=== PATIENT | male | born 1940 | race Caucasian/White ===

== ENCOUNTER 2017-10-20 07:47 | Observation (INO) | payer BC ==
[~2017-10-20] VITALS: Ht 180.3 cm; Wt 76.7 kg
[2017-10-20] MEDS ORDERED: IV NORMAL SALINE 1000ML BAG 1,000 ML IV SCH (07:55)
--- NOTE | 2017-10-20 08:03 | EKG ---
[facility] [address] [place] [address] Test Date: 2017-10-20 Test Time: 07:59:58 Pat Name: HAWA BE Department: Room: Gender: M Care Worker: : 1940 Requested By: AZUL AARON Order Number: [id number] Reading MD: Gabriel Dorman MD Measurements Intervals [place] Rate: 60 P: 0 TX: 186 QRS: 52 QRSD: 78 T: 51 QT: 382 QTc: 386 Interpretive Statements SINUS RHYTHM CONSISTENT WITH ANTEROSEPTAL INFARCT Electronically Signed On 10-25-2017 14:29:56 COST RECORDER by Gabriel Dorman MD
--- NOTE | 2017-10-20 08:06 | PHYS DOC ---
Past Medical History Past Medical History: CAD, High Cholesterol, Heart Disease, Hypertension, Hypothyroid Past Surgical History: Coronary Bypass Surgery Alcohol Use: None Drug Use: None Adult General Chief Complaint Chief Complaint: NEAR SYNCOPE HPI HPI This is a pleasant 77-year-old otherwise healthy male with history of coronary artery disease requiring bypass surgery 10 years ago who is being treated for hypothyroidism, hypertension and hyperlipidemia who presents with a sudden onset of dizziness and anxiety that began about an hour prior to arrival. Patient was sitting at a [employer] with his friends when he became acutely dizzy. There is no associated hearing loss or tinnitus with his dizziness. He has no chew acuity changes in vision just some blurred vision secondary to hyperventilation. Patient has some tingling to his mouth and his fingertips as well bilaterally and he feels that he cannot take a deep breath in. Patient feels very anxious he denies any chest pain and feels very short of breath as he feels that he cannot breathe well and is having some shaking chills and rrigors. Patient denies any fevers, cough, URI symptoms. Patient denies any travel outside the country or recent antibiotic use. He's never had expressed like this in the past. Differential diagnosis: Acute myocardial ischemia, heart failure, cardiac tamponade, bronchospasm, pulmonary embolism, pneumothorax, pulmonary infection i.e. bronchitis or pneumonia, upper airway obstruction, anaphylaxis, aspiration , psychogenic, pulmonary contusion, toxidrome, pneumomediastinum, noncardiogenic pulmonary edema or ARDS, COPD, tuberculosis, cystic fibrosis, asthma, high altitude pulmonary edema, valvular dysfunction, cardiac dysrhythmia , stroke, neuromuscular diseases like myasthenia gravis gravis, ALS, Guillain- Álvarez syndrome, metabolic acidosis to include diabetic ketoacidosis, sepsis, and obstructive disorders like massive obesity Review of Systems Review of Systems Constitutional: Denies fever patient has had chills and a Rigor Eyes: Denies change in eye pain or redness but he has had some blurred vision [] HENT: Denies nasal congestion or sore throat [] Respiratory: Denies cough but the patient does for short of breath with this symptoms. Cardiovascular: No additional information not addressed in HPI [] GI: Denies abdominal pain, nausea, vomiting, bloody stools or diarrhea [] : Denies dysuria or hematuria [] Musculoskeletal: Denies back pain or joint pain [] Integument: Denies rash or skin lesions [] Neurologic: Denies headache, focal weakness, patient has some paresthesias to the hands and face Endocrine: Denies polyuria or polydipsia [] All other systems were reviewed and found to be within normal limits, except as documented in this note. Current Medications Current Medications Current Medications Medications (Trade) Dose Ordered Sig/Tee Start Time Stop Time Status Last Admin Dose Admin Acetaminophen (Tylenol) 650 mg PRN Q4HRS PRN 10/20/17 10:45 10/21/17 10:44 Azithromycin 250 ml @ 250 mls/hr 1X ONCE 10/20/17 10:15 10/20/17 11:14 Ceftriaxone Sodium 50 ml @ 100 mls/hr 1X ONCE 10/20/17 10:15 10/20/17 10:44 DC 10/20/17 10:34 100 MLS/HR Fentanyl Citrate (Fentanyl 2ml Vial) 50 mcg PRN Q2HR PRN 10/20/17 10:45 10/21/17 10:44 Labetalol HCl (Normodyne) 20 mg 1X ONCE 10/20/17 10:15 10/20/17 10:16 DC Lorazepam (Ativan) 2 mg 1X ONCE 10/20/17 08:15 10/20/17 08:32 DC 10/20/17 08:49 2 MG Ondansetron HCl (Zofran) 4 mg PRN Q8HRS PRN 10/20/17 10:45 10/21/17 10:44 Sodium Chloride 1,000 ml @ 2,280 mls/hr Q27M 10/20/17 10:10 10/20/17 11:10 10/20/17 10:29 2,280 MLS/HR Sodium Chloride (Normal Saline Flush) 10 ml QSHIFT PRN 10/20/17 08:00 10/20/17 10:29 10 ML Allergies Allergies Allergies Coded Allergies Type Severity Reaction Last Updated Verified No Known Drug Allergies 10/20/17 No Physical Exam Physical Exam Constitutional: Well developed, well nourished, no acute distress, non-toxic appearance. [] HENT: Normocephalic, atraumatic, bilateral external ears normal, oropharynx moist, no oral exudates, nose normal. [] Eyes: PERRLA, EOMI, conjunctiva normal, no discharge. [] Neck: Normal range of motion, no tenderness, supple, no stridor. [] Cardiovascular:Heart rate regular rhythm, no murmur [] Lungs & Thorax: Bilateral breath sounds clear to auscultation [] Abdomen: Bowel sounds normal, soft, no tenderness, no masses, no pulsatile masses. [] Skin: Warm, dry, no erythema, no rash. [] Back: No tenderness, no CVA tenderness. [] Extremities: No tenderness, no cyanosis, no clubbing, ROM intact, no edema. [] Neurologic: Alert and oriented X 3, normal motor function, normal sensory function, no focal deficits noted. [] Psychologic: Affect normal, judgement normal, mood normal. [] Current Patient Data Vital Signs Vital Signs Date Time Temp Pulse Resp B/P (MAP) Pulse Ox O2 Delivery O2 Flow Rate FiO2 10/20/17 10:36 62 16 97 10/20/17 08:02 97.5 212/85 (127) Room Air 97.5 Lab Values Laboratory Tests Test 10/20/17 08:05 10/20/17 08:20 10/20/17 10:10 White Blood Count 6.8 x10^3/uL (4.0-11.0) Red Blood Count 4.47 x10^6/uL (4.30-5.70) Hemoglobin 15.2 g/dL (13.0-17.5) Hematocrit 44.5 % (39.0-53.0) Mean Corpuscular Volume 100 fL (79-100) Mean Corpuscular Hemoglobin 34 pg (25-35) Mean Corpuscular Hemoglobin Concent 34 g/dL (31-37) Red Cell Distribution Width 13.4 % (11.5-14.5) Platelet Count 148 x10^3/uL (140-400) Neutrophils (%) (Auto) 80 % (31-73) H Lymphocytes (%) (Auto) 10 % (24-48) L Monocytes (%) (Auto) 5 % (0-9) Eosinophils (%) (Auto) 4 % (0-3) H Basophils (%) (Auto) 1 % (0-3) Neutrophils # (Auto) 5.5 x10^3uL (1.8-7.7) Lymphocytes # (Auto) 0.7 x10^3/uL (1.0-4.8) L Monocytes # (Auto) 0.3 x10^3/uL (0.0-1.1) Eosinophils # (Auto) 0.3 x10^3/uL (0.0-0.7) Basophils # (Auto) 0.1 x10^3/uL (0.0-0.2) Lactic Acid Level 2.5 mmol/L (0.4-2.0) H Sodium Level 141 mmol/L (136-145) Potassium Level 3.8 mmol/L (3.5-5.1) Chloride Level 103 mmol/L (98-107) Carbon Dioxide Level 24 mmol/L (21-32) Anion Gap 14 (6-14) Blood Urea Nitrogen 19 mg/dL (8-26) Creatinine 1.2 mg/dL (0.7-1.3) Estimated GFR (Cockcroft-Gault) 58.4 Glucose Level 144 mg/dL (70-99) H Calcium Level 9.8 mg/dL (8.5-10.1) Magnesium Level 2.2 mg/dL (1.8-2.4) Total Bilirubin 0.5 mg/dL (0.2-1.0) Direct Bilirubin 0.1 mg/dL (0.0-0.2) Aspartate Amino Transferase (AST) 59 U/L (15-37) H Alanine Aminotransferase (ALT) 48 U/L (16-63) Alkaline Phosphatase 100 U/L (46-116) Creatine Kinase 133 U/L (39-308) Creatine Kinase MB (Mass) 1.5 ng/mL (0.0-3.6) Creatine Kinase MB Relative Index 1.1 % (0-4) Troponin I Quantitative < 0.017 ng/mL (0.000-0.055) JX-Dpw-O-Type Natriuretic Peptide 155 pg/mL (0-449) Total Protein 7.6 g/dL (6.4-8.2) Albumin 3.8 g/dL (3.4-5.0) Lipase 90 U/L (73-393) Thyroid Stimulating Hormone (TSH) 12.470 uIU/mL (0.358-3.74) H Free Thyroxine 0.91 ng/dL (0.76-1.46) Free Triiodothyronine (T3) pg/mL 2.02 pg/mL (2.18-3.98) L Urine Collection Type Void Urine Color Yellow Urine Clarity Clear Urine pH 7.5 Urine Specific Jackson 1.015 Urine Protein Negative mg/dL (NEG-TRACE) Urine Glucose (UA) Negative mg/dL (NEG) Urine Ketones (Stick) Negative mg/dL (NEG) Urine Blood Negative (NEG) Urine Nitrite Negative (NEG) Urine Bilirubin Negative (NEG) Urine Urobilinogen Dipstick 0.2 mg/dL (0.2 mg/dL) Urine Leukocyte Esterase Negative (NEG) Urine RBC Occ /HPF (0-2) Urine WBC 0 /HPF (0-4) Urine Bacteria 0 /HPF (0-FEW) Urine Mucus Slight /LPF Laboratory Tests 10/20/17 08:05 Laboratory Tests 10/20/17 08:20 EKG EKG []EKG timed 7:59 AM read by me at 8 AM 0 10/20/2017 demonstrates a heart rate of 60 there is a P wave there were QRS this is normal sinus rhythm with a NE interval 186 which is normal, patient is a QRS width of 70 which is normal, QTc of 386 which is also normal. Patient has some movement artifact noted in the EKG there is an old Q-wave in the anterior leads V1 and V2 which is likely secondary to the old injury pattern as required CABG patient is experienced 10 years ago. Radiology/Procedures Radiology/Procedures [] [facility] [address] [place] [address] IMAGING REPORT Signed PATIENT: HAWA BE ACCOUNT: [id number] : 1940 LOCATION: ER AGE: 77 SEX: M EXAM STATUS: REG ER ORD. PHYSICIAN: AZUL AARON MD REASON: dizziness PROCEDURE: CT HEAD WO CONTRAST Clinical Indication: Dizziness Technique: Study is dated October 20, 2017. CT images of the head were obtained from the skull base to the vertex without IV contrast. There are no comparison studies available. One or more of the following individualized dose reduction techniques were utilized for this examination: 1. Automated exposure control 2. Adjustment of the mA and/or kV according to patient size 3. Use of iterative reconstruction technique Findings: There is diffuse, symmetric prominence of the ventricles and subarachnoid spaces consistent with age-related parenchymal volume loss. There are areas of scattered decreased attenuation in the supratentorial white matter. While nonspecific, findings are likely secondary to small vessel ischemic disease. There is no hemorrhage, extraaxial fluid collection, mass, or midline shift. There is no large vascular distribution infarct. The posterior fossa and brain stem are unremarkable. There are vascular calcifications. Orbits are normal. There is ethmoid mucosal thickening. There is no skull fracture appreciated on bone level images. Impression: No acute intracranial findings. Brain parenchymal volume loss and probable small vessel ischemic disease. DICTATED and SIGNED BY: JOSSELINE ONEILL MD DATE: 10/20/17837 CC: AZUL AARON MD; ZOEY DENTON MD ~ [facility] [address] [place] [address] IMAGING REPORT Signed PATIENT: HAWA BE ACCOUNT: [id number] : 1940 LOCATION: ER AGE: 77 SEX: M EXAM STATUS: REG ER ORD. PHYSICIAN: AZUL AARON MD REASON: dizzy PROCEDURE: PORTABLE CHEST 1V Portable chest, 10/20/2017: History: Shortness of breath, blurred vision Comparison is made to a study from 09/13/2007. There has been a previous median sternotomy. The heart size and pulmonary vascularity are normal. There is mild bilateral pleural/parenchymal scarring. No acute infiltrate is seen. There is no evidence of pleural fluid. IMPRESSION: No acute cardiopulmonary abnormality is detected. DICTATED and SIGNED BY: MARGUERITE STOKES MD DATE: 10/20/17845 CC: AZUL AARON MD; ZOEY DENTON MD ~ Course & Med Decision Making Course & Med Decision Making Pertinent Labs and Imaging studies reviewed. (See chart for details) []Patient presents with sudden onset of dizziness and chills with Fever and rigors without a clear source of infection or an actual measured temperature. Patient felt increasingly weak and dizzy with the symptoms. He denies any cough , abdominal pain, UTI symptoms or shortness of breath. He just feels achy all over on arrival he was tachypnea and very hypertensive. He felt very anxious and was offered fluids as well as Ativan. Time is now 9:45 AM patient noted to have an elevated lactic acid level 2.4 which gives us an indication that he is not perfusing well or is fighting an infection there is increase in metabolic demand causing this acidosis. He is really given a liter of fluids upon arrival. Concerning his cardiovascular status we may add an additional 20 mL/kg fluid bolus on top bleeding is only received and her to ensure that he has enough fluid administration for possible sepsis workup. Patient's tachypnea is improved with Ativan given IV 2 mg. Time is now 10:07 AM patient noted to have an elevated TSH of 12.2 because patient is on levothyroxine 88 g per day he may need to have this medication adjusted. A free T4 and free T3 were ordered as well as a course of antibiotics to include Rocephin and azithromycin as a broad-spectrum approach to possible infection. I will also add and inflamed a screen to his evaluation. Patient is still hypertensive and have ordered a dose of labetalol to treat this elevated low pressure. I discussed findings with family so far am awaiting the rest of his workup. At this point CT head demonstrated no acute intracranial hemorrhage or other findings of mass or lesion. Patient's chest x- ray read by radiology reviewed by me at approximately 10:08 AM and shows no acute pulmonary infiltrate. Patient's urinalysis is still pending. Patient's CBC demonstrates a mild left shift but white count is normal as well as normal H &H./ Patient's urinalysis shows no signs of infection, but patient is still weak and dizzy patient we admitted to the hospital for continued evaluation of this near syncopal event which may be related to hypothyroidism patient is not in next edema, at this time. Patient's vital signs do not support particular diagnosis. [employer] note: 10:30 AM called Hospital was staff consultant [employer] called at of the service 10:31 AM Consult called back at Discussed the case I presented and they agreed with admission. Time of acceptance 10:31 AM I spent approximately 45-50 minutes working and engaged directly in the patient care providing critical care evaluation this includes but not limited to time spent engaged in work directly related to the individual patients care. I spent time at the bedside, reviewing test results, discussing the case with staff, documenting the medical record and time spent with EMS discussing specific treatment issues when the patient presented and during his evaluation. "I have assessed this patient clinically and believe that their condition requires an admission to the hospital. After consulting the admitting physician about this case, they have asked that I admit this patient to their service as an inpatient based on the clinical presentation and my impression." Dragon Disclaimer Dragon Disclaimer This electronic medical record was generated, in whole or in part, using a voice recognition dictation system. Departure Departure Impression: Primary Impression: Near syncope Additional Impressions: Lactic acidosis Hypothyroidism Generalized weakness Anxiety Disposition: 09 ADMITTED INPATIENT Admitting Physician: Deja Chau Condition: GUARDED Referrals: ZOEY DENTON MD (PCP) Problem Qualifiers AZUL AARON MD Oct 20, 2017 08:06
[2017-10-20] MEDS ORDERED: HYDR12.58 PO (08:33)
[2017-10-20] MEDS ORDERED: LOSA50TA6 PO (08:33)
[2017-10-20] MEDS ORDERED: NIAC250T19 PO (08:33)
[2017-10-20] MEDS ORDERED: ISOS30TA4 PO (08:33)
[2017-10-20] MEDS ORDERED: ATOR40TA59 PO (08:33)
[2017-10-20] MEDS ORDERED: LEVO88TA4 PO (08:33)
[2017-10-20] MEDS ORDERED: ASPI325T8 PO (08:33)
--- NOTE | 2017-10-20 08:44 | RAD ---
Clinical Indication: Dizziness Technique: Study is dated October 20, 2017. CT images of the head were obtained from the skull base to the vertex without IV contrast. There are no comparison studies available. One or more of the following individualized dose reduction techniques were utilized for this examination: 1. Automated exposure control 2. Adjustment of the mA and/or kV according to patient size 3. Use of iterative reconstruction technique Findings: There is diffuse, symmetric prominence of the ventricles and subarachnoid spaces consistent with age-related parenchymal volume loss. There are areas of scattered decreased attenuation in the supratentorial white matter. While nonspecific, findings are likely secondary to small vessel ischemic disease. There is no hemorrhage, extraaxial fluid collection, mass, or midline shift. There is no large vascular distribution infarct. The posterior fossa and brain stem are unremarkable. There are vascular calcifications. Orbits are normal. There is ethmoid mucosal thickening. There is no skull fracture appreciated on bone level images. Impression: No acute intracranial findings. Brain parenchymal volume loss and probable small vessel ischemic disease.
[2017-10-20] MEDS: 0.9 % SODIUM CHLORIDE 10 ML DISP.SYRIN. IV PRN ×2 (08:46→10:29)
[2017-10-20 08:50] LABS: CALCIUM 9.8 mg/dL (8.5-10.1); CREATININE 1.2 mg/dL (0.7-1.3); GFR 58.4; POTASSIUM 3.8 mmol/L (3.5-5.1)
--- NOTE | 2017-10-20 08:52 | RAD ---
Portable chest, 10/20/2017: History: Shortness of breath, blurred vision Comparison is made to a study from 09/13/2007. There has been a previous median sternotomy. The heart size and pulmonary vascularity are normal. There is mild bilateral pleural/parenchymal scarring. No acute infiltrate is seen. There is no evidence of pleural fluid. IMPRESSION: No acute cardiopulmonary abnormality is detected.
[2017-10-20 08:55] LABS: ALBUMIN 3.8 g/dL (3.4-5.0); DIRECT BILIRUBIN 0.1 mg/dL (0.0-0.2); MAGNESIUM 2.2 mg/dL (1.8-2.4); TOTAL BILIRUBIN 0.5 mg/dL (0.2-1.0); TOTAL PROTEIN 7.6 g/dL (6.4-8.2)
[2017-10-20 09:11] LABS: CKMB MASS 1.5 ng/mL (0.0-3.6)
[2017-10-20 09:29] LABS: BASO # 0.1 x10^3/uL (0.0-0.2); BASO % 1 % (0-3); EOS % 4 % (0-3); HEMATOCRIT 44.5 % (39.0-53.0); HEMOGLOBIN 15.2 g/dL (13.0-17.5); LYMPH # 0.7 x10^3/uL (1.0-4.8); LYMPH % 10 % (24-48); MEAN CORPUSCULAR HEMOGLOBIN 34 pg (25-35); MEAN CORPUSCULAR HGB CONC 34 g/dL (31-37); MEAN CORPUSCULAR VOLUME 100 fL (79-100); MONO % 5 % (0-9); NEUT % 80 % (31-73); PLATELET COUNT 148 x10^3/uL (140-400); RED BLOOD COUNT 4.47 x10^6/uL (4.30-5.70); RED CELL DISTRIBUTION WIDTH 13.4 % (11.5-14.5); WHITE BLOOD COUNT 6.8 x10^3/uL (4.0-11.0)
[2017-10-20] MEDS ORDERED: LABETALOL 20 MG/4 ML DISP.SYRIN. IVP ONE (10:15)
[2017-10-20] MEDS ORDERED: AZITHRMYCN 500MG IVPB FOR OMNI 250 ML IV ONE (10:15)
[2017-10-20 10:23] LABS: BILIRUBIN,URINE NEGATIVE (NEG); GLUCOSE,URINE NEGATIVE (NEG); NITRITE,URINE NEGATIVE (NEG); PH,URINE 7.5; PROTEIN,URINE NEGATIVE (NEG-TRACE); UROBILINOGEN,URINE 0.2 mg/dL (0.2 mg/dL)
[2017-10-20] MEDS: IV NORMAL SALINE 1000ML BAG 1,000 ML IV SCH ×4 (10:29→14:52)
[2017-10-20 10:30] LABS: WBC,URINE 0 /HPF (0-4)
[2017-10-20 10:31] LABS: BACTERIA,URINE 0 /HPF (0-FEW); RBC,URINE OCC /HPF (0-2)
[2017-10-20 10:34] LABS: FREE T4 0.91 ng/dL (0.76-1.46)
[2017-10-20] MEDS ORDERED: ONDANSETRON PF 4 MG/2 ML VIAL. IV PRN ×2 (10:45→12:45)
[2017-10-20] MEDS ORDERED: ACETAMINOPHEN 325 MG TABLET. PO PRN (10:45)
[2017-10-20] MEDS ORDERED: fentaNYL PF VIAL 100 MCG/2 ML VIAL IV PRN (10:45)
[2017-10-20 11:22] LABS: OBC FLU VALID
[2017-10-20 12:04] VITALS: BP 142/64
--- NOTE | 2017-10-20 12:44 | PDOC1 ---
History and Physical Date of Admission Date of Admission DATE: 10/20/17 TIME: 12:38 Identification/Chief Complaint Chief Complaint Near passed out at [employer], sudden onset rigors chills Problems: Source Source: Caregiver, Chart review, Patient History of Present Illness History of Present Illness Very pleasant 77-year-old male who was having breakfast at [employer] today set an onset of rigors, chills accompanied by family members. Almost nearly passed out multiple times but did not blackout. He claims he had sudden blurry of vision had some slurred speech and is still slurry as per family members. He any chest pain, abdominal pain, lightheadedness, shortness of breath before the episode. No seizure-like activity No loss of bowel or bladder incontinence. He claims he wanted to say but had difficulty verbalizing them. No history of stroke or indwelling stents but did have CABG in the distant past. Nonsmoker, nonalcoholic drinker, history of hypertension on medications, hypothyroidism on Synthroid. Emergency room workup was negative except for a TSH of 12. He is on Synthroid 88 mg and claims compliance. 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 Patient admitted for syncope workup observation status. EKG shows no arrhythmia. Troponin is negative. Chest x-ray is otherwise unimpressive. Discussed plan of care with family and will increase Synthroid to 100 MCG per day. Need to recheck thyroid levels in 4-6 weeks' time. Check an echocardiogram and an MRI given that patient is still slurry. And to rule out acute CVA. My neuro exam is otherwise nonfocal.. Past Medical History Cardiovascular: CAD, HTN, Hyperlipidemia Pulmonary: Bronchitis Past Surgical History Past Surgical History: CABG Family History Family History: Hypertension Social History Smoke: No ALCOHOL: none Drugs: None Current Problem List Problem List Problems Medical Problems: (1) Anxiety Status: Acute (2) Generalized weakness Status: Acute (3) Hypothyroidism Status: Acute (4) Lactic acidosis Status: Acute (5) Near syncope Status: Acute Problems: Current Medications Current Medications Current Medications Sodium Chloride 1,000 ml @ 1,000 mls/hr Q1H IV Last administered on t 08:46; Start 10/20/17 at 07:55; Stop 10/20/17 at 08:54; Status DC Sodium Chloride (Normal Saline Flush) 10 ml QSHIFT PRN IV AFTER MEDS AND BLOOD DRAWS Last administered on 10/20/17 10:29; Start 10/20/17 at 08:00 Lorazepam (Ativan) 2 mg 1X ONCE IV Last administered on 10/20/17 08:49; Start 10/20/17 at 08:15; Stop 10/20/17 at 08:32; Status DC Labetalol HCl (Normodyne) 20 mg 1X ONCE IVP ; Start 10/20/17 at 10:15; Stop 10/20/17 at 10:16; Status DC Ceftriaxone Sodium 50 ml @ 100 mls/hr 1X ONCE IV Last administered on 10:34; Start 10/20/17 at 10:15; Stop 10/20/17 at 10:44; Status DC Azithromycin 250 ml @ 250 mls/hr 1X ONCE IV Last administered on 10/20/17 11:21; Start 10/20/17 at 10:15; Stop 10/20/17 at 11:14; Status DC Sodium Chloride 1,000 ml @ 2,280 mls/hr Q27M IV Last administered on 10:29; Start 10/20/17 at 10:10; Stop 10/20/17 at 11:10; Status DC Ondansetron HCl (Zofran) 4 mg PRN Q8HRS PRN IV NAUSEA/VOMITING; Start at 10:45; Stop 10/20/17 at 12:37; Status DC Fentanyl Citrate (Fentanyl 2ml Vial) 50 mcg PRN Q2HR PRN IV PAIN; Start at 10:45; Stop 10/21/17 at 10:44 Acetaminophen (Tylenol) 650 mg PRN Q4HRS PRN PO FEVER; Start 10/20/17 at 10:45 ; Stop 10/21/17 at 10:44 Ondansetron HCl (Zofran) 4 mg PRN Q6HRS PRN IV NAUSEA/VOMITING; Start at 12:45; Stop 10/21/17 at 12:44; Status UNV Sodium Chloride 1,000 ml @ 100 mls/hr Q10H IV ; Start 10/20/17 at 12:45; Status UNV Active Scripts Active Reported Aspirin 325 Mg Tablet 1 Tab PO DAILY Endur-Acin (Niacin) 250 Mg Tablet.er Unknown Dose PO Atorvastatin Calcium 40 Mg Tablet 1 Tab PO DAILY Losartan Potassium 50 Mg Tablet 50 Mg PO DAILY Levothyroxine Sodium 88 Mcg Tablet 1 Tab PO DAILY Isosorbide Mononitrate Er (Isosorbide Mononitrate) 30 Mg Tab.er.24h 1 Tab PO DAILY Hydrochlorothiazide Tablet (Hydrochlorothiazide) 12.5 Mg Tablet 1 Tab PO DAILY Allergies Allergies: Coded Allergies: No Known Drug Allergies (Unverified , 10/20/17) ROS Review of System As per history of present illness, A 14 point ROS was completed with the following noted as positive: Other systems reviewed and negative. \CONSTITUTIONAL: No fever or chills EYES: No recent changes SKIN: No rash or itching CARDIOVASCULAR: No chest pain, syncope, palpitations, or edema RESPIRATORY: No SOB or cough GASTROINTESTINAL: No nausea, vomiting or abdominal pain NEUROLOGICAL: No headaches or weakness ENDOCRINE: No cold or heat intolerance GENITOURINARY: No urgency or frequency of urination MUSCULOSKELETAL: No back pain or joint pain LYMPHATICS: No enlarged lymph nodes PSYCHIATRIC: No anxiety or depression Physical Exam Physical Exam Physical Exam General: Alert, Oriented X3, Cooperative, No acute distress HEENT: Atraumatic, PERRLA Lungs: Normal air movement, Other (wheezy) Heart: S1S2, RRR, no thrills, no gallops, no murmurs Cardiovascular: S1, S2 Abdomen: Normal bowel sounds, Soft, No tenderness, No hepatosplenomegaly, No masses, Other (obese) Rectal Exam: not examined PELVIC: Nml ext genitalia Extremities: No rashes, no edema, pulses full and equal Skin: No rashes, No breakdown, No significant lesion Neuro: Normal gait, Normal speech, Strength at 5/5 X4 ext, Normal tone, Sensation intact, Cranial nerves 3-12 NL, Reflexes 2+ Psych/Mental Status: Mental status NL, Mood NL Vitals Vitals Vital Signs Date Time Temp Pulse Resp B/P (MAP) Pulse Ox O2 Delivery O2 Flow Rate FiO2 10/20/17 12:04 96.1 70 18 142/64 (90) 98 Room Air 96.1 Labs Labs Laboratory Tests Test 10/20/17 08:05 10/20/17 08:20 10/20/17 10:10 10/20/17 10:38 White Blood Count 6.8 x10^3/uL (4.0-11.0) Red Blood Count 4.47 x10^6/uL (4.30-5.70) Hemoglobin 15.2 g/dL (13.0-17.5) Hematocrit 44.5 % (39.0-53.0) Mean Corpuscular Volume 100 fL (79-100) Mean Corpuscular Hemoglobin 34 pg (25-35) Mean Corpuscular Hemoglobin Concent 34 g/dL (31-37) Red Cell Distribution Width 13.4 % (11.5-14.5) Platelet Count 148 x10^3/uL (140-400) Neutrophils (%) (Auto) 80 % (31-73) Lymphocytes (%) (Auto) 10 % (24-48) Monocytes (%) (Auto) 5 % (0-9) Eosinophils (%) (Auto) 4 % (0-3) Basophils (%) (Auto) 1 % (0-3) Neutrophils # (Auto) 5.5 x10^3uL (1.8-7.7) Lymphocytes # (Auto) 0.7 x10^3/uL (1.0-4.8) Monocytes # (Auto) 0.3 x10^3/uL (0.0-1.1) Eosinophils # (Auto) 0.3 x10^3/uL (0.0-0.7) Basophils # (Auto) 0.1 x10^3/uL (0.0-0.2) Lactic Acid Level 2.5 mmol/L (0.4-2.0) Sodium Level 141 mmol/L (136-145) Potassium Level 3.8 mmol/L (3.5-5.1) Chloride Level 103 mmol/L (98-107) Carbon Dioxide Level 24 mmol/L (21-32) Anion Gap 14 (6-14) Blood Urea Nitrogen 19 mg/dL (8-26) Creatinine 1.2 mg/dL (0.7-1.3) Estimated GFR (Cockcroft-Gault) 58.4 Glucose Level 144 mg/dL (70-99) Calcium Level 9.8 mg/dL (8.5-10.1) Magnesium Level 2.2 mg/dL (1.8-2.4) Total Bilirubin 0.5 mg/dL (0.2-1.0) Direct Bilirubin 0.1 mg/dL (0.0-0.2) Aspartate Amino Transf (AST/SGOT) 59 U/L (15-37) Alanine Aminotransferase (ALT/SGPT) 48 U/L (16-63) Alkaline Phosphatase 100 U/L (46-116) Creatine Kinase 133 U/L (39-308) Creatine Kinase MB (Mass) 1.5 ng/mL (0.0-3.6) Creatine Kinase MB Relative Index 1.1 % (0-4) Troponin I Quantitative < 0.017 ng/mL (0.000-0.055) KE-Kgy-K-Type Natriuretic Peptide 155 pg/mL (0-449) Total Protein 7.6 g/dL (6.4-8.2) Albumin 3.8 g/dL (3.4-5.0) Lipase 90 U/L (73-393) Thyroid Stimulating Hormone (TSH) 12.470 uIU/mL (0.358-3.74) Free Thyroxine 0.91 ng/dL (0.76-1.46) Free Triiodothyronine (T3) pg/mL 2.02 pg/mL (2.18-3.98) Urine Collection Type Void Urine Color Yellow Urine Clarity Clear Urine pH 7.5 Urine Specific [place] 1.015 Urine Protein Negative mg/dL (NEG-TRACE) Urine Glucose (UA) Negative mg/dL (NEG) Urine Ketones (Stick) Negative mg/dL (NEG) Urine Blood Negative (NEG) Urine Nitrite Negative (NEG) Urine Bilirubin Negative (NEG) Urine Urobilinogen Dipstick 0.2 mg/dL (0.2 mg/dL) Urine Leukocyte Esterase Negative (NEG) Urine RBC Occ /HPF (0-2) Urine WBC 0 /HPF (0-4) Urine Bacteria 0 /HPF (0-FEW) Urine Mucus Slight /LPF Influenza Type A Antigen Negative (NEGATIVE) Influenza Type B Antigen Negative (NEGATIVE) Laboratory Tests Test 10/20/17 08:05 10/20/17 08:20 10/20/17 10:10 10/20/17 10:38 White Blood Count 6.8 x10^3/uL (4.0-11.0) Red Blood Count 4.47 x10^6/uL (4.30-5.70) Hemoglobin 15.2 g/dL (13.0-17.5) Hematocrit 44.5 % (39.0-53.0) Mean Corpuscular Volume 100 fL (79-100) Mean Corpuscular Hemoglobin 34 pg (25-35) Mean Corpuscular Hemoglobin Concent 34 g/dL (31-37) Red Cell Distribution Width 13.4 % (11.5-14.5) Platelet Count 148 x10^3/uL (140-400) Neutrophils (%) (Auto) 80 % (31-73) Lymphocytes (%) (Auto) 10 % (24-48) Monocytes (%) (Auto) 5 % (0-9) Eosinophils (%) (Auto) 4 % (0-3) Basophils (%) (Auto) 1 % (0-3) Neutrophils # (Auto) 5.5 x10^3uL (1.8-7.7) Lymphocytes # (Auto) 0.7 x10^3/uL (1.0-4.8) Monocytes # (Auto) 0.3 x10^3/uL (0.0-1.1) Eosinophils # (Auto) 0.3 x10^3/uL (0.0-0.7) Basophils # (Auto) 0.1 x10^3/uL (0.0-0.2) Lactic Acid Level 2.5 mmol/L (0.4-2.0) Sodium Level 141 mmol/L (136-145) Potassium Level 3.8 mmol/L (3.5-5.1) Chloride Level 103 mmol/L (98-107) Carbon Dioxide Level 24 mmol/L (21-32) Anion Gap 14 (6-14) Blood Urea Nitrogen 19 mg/dL (8-26) Creatinine 1.2 mg/dL (0.7-1.3) Estimated GFR (Cockcroft-Gault) 58.4 Glucose Level 144 mg/dL (70-99) Calcium Level 9.8 mg/dL (8.5-10.1) Magnesium Level 2.2 mg/dL (1.8-2.4) Total Bilirubin 0.5 mg/dL (0.2-1.0) Direct Bilirubin 0.1 mg/dL (0.0-0.2) Aspartate Amino Transf (AST/SGOT) 59 U/L (15-37) Alanine Aminotransferase (ALT/SGPT) 48 U/L (16-63) Alkaline Phosphatase 100 U/L (46-116) Creatine Kinase 133 U/L (39-308) Creatine Kinase MB (Mass) 1.5 ng/mL (0.0-3.6) Creatine Kinase MB Relative Index 1.1 % (0-4) Troponin I Quantitative < 0.017 ng/mL (0.000-0.055) GT-Tcg-X-Type Natriuretic Peptide 155 pg/mL (0-449) Total Protein 7.6 g/dL (6.4-8.2) Albumin 3.8 g/dL (3.4-5.0) Lipase 90 U/L (73-393) Thyroid Stimulating Hormone (TSH) 12.470 uIU/mL (0.358-3.74) Free Thyroxine 0.91 ng/dL (0.76-1.46) Free Triiodothyronine (T3) pg/mL 2.02 pg/mL (2.18-3.98) Urine Collection Type Void Urine Color Yellow Urine Clarity Clear Urine pH 7.5 Urine Specific [place] 1.015 Urine Protein Negative mg/dL (NEG-TRACE) Urine Glucose (UA) Negative mg/dL (NEG) Urine Ketones (Stick) Negative mg/dL (NEG) Urine Blood Negative (NEG) Urine Nitrite Negative (NEG) Urine Bilirubin Negative (NEG) Urine Urobilinogen Dipstick 0.2 mg/dL (0.2 mg/dL) Urine Leukocyte Esterase Negative (NEG) Urine RBC Occ /HPF (0-2) Urine WBC 0 /HPF (0-4) Urine Bacteria 0 /HPF (0-FEW) Urine Mucus Slight /LPF Influenza Type A Antigen Negative (NEGATIVE) Influenza Type B Antigen Negative (NEGATIVE) VTE Prophylaxis Ordered VTE Prophylaxis Devices: Yes VTE Pharmacological Prophylaxi: Yes Assessment/Plan Assessment/Plan Near syncope/syncope-like episode hypothyroidism with elevated TSH 12 distant history CABG hypertension controlled dyslipidemia on niacin plan: Observation Check echo, check MRI brain without contrast, PT OT Increase Synthroid to 100 MCG by mouth daily Needs to recheck thyroid levels in 4-6 weeks times Discussed with family at bedside, seen at the emergency room DIMITRI SHRESTHA MD Oct 20, 2017 12:44
[2017-10-20] MEDS: ASPIRIN 325 MG TABLET PO SCH (13:00)
[2017-10-20] MEDS: ISOSORBIDE MONONITRATE ER 30 MG TAB.ER.24H PO SCH (13:00)
[2017-10-20] MEDS: LOSARTAN POTASSIUM 50 MG TABLET. PO SCH (13:15)
[2017-10-20] MEDS: NIACIN ER 250 MG TABLET.ER PO SCH (13:15)
--- NOTE | 2017-10-20 13:24 | PDOC ---
PROGRESS NOTES Chief Complaint Chief Complaint [error] XI KRISHNAMURTHY MD Oct 20, 2017 13:24
[2017-10-20 14:50] VITALS: BP 161/72
--- NOTE | 2017-10-20 14:51 | RAD ---
MRI Brain without contrast History: Slurred speech, confusion, blurred vision, symptoms started this morning Technique: Multiplanar, multisequential noncontrast MR imaging was performed of the brain. Contrast: None Comparison: None Findings: There is no evidence of recent infarct or cytotoxic edema. Ventricular size is within normal limits given mild to moderate supratentorial atrophy which somewhat more greatly affected the parietal lobes.There is no significant midline shift, intraaxial mass effect, or focal abnormal extra-axial fluid collection. There is very mild T2 and FLAIR hyperintense abnormality of the supratentorial white matter such as of the periatrial and parietal white matter. There is preservation of the major intracranial flow-voids at the skull base. The mastoid air cells are aerated. The cerebellar tonsils are normal in location. There is no significant abnormality of the pineal gland or pituitary gland. There is patchy moderate to severe ethmoid air cell mucosal thickening. There is small air-fluid level of the left maxillary sinus. There is mild bilateral frontal sinus mucosal thickening. There is preserved marrow signal of the clivus. There has been lens surgery bilaterally. Impression: 1. There is no evidence of recent infarct or intracranial mass effect. Very mild T2 and FLAIR hyperintense signal abnormality of the supratentorial white matter is nonspecific although most commonly due to chronic microvascular ischemic disease in a patient this age. There is mild to moderate supratentorial atrophy greater of the parietal lobes. 2. There is small air-fluid level in the left maxillary sinus which could be due to acute sinusitis, other paranasal sinus mucosal thickening as stated greatest of the ethmoid air cells. Electronically signed by: Ja Petersen MD (10/20/2017 2:48 PM) [id number]
[2017-10-20] MEDS: hydroCHLOROthiazide 12.5 MG CAPSULE PO SCH (14:56)
[2017-10-20 19:00] VITALS: BP 151/57
[2017-10-20] MEDS ORDERED: DONE10TA7 PO (22:17)
[2017-10-20 22:57] VITALS: BP 126/45
[2017-10-21] MEDS: IV NORMAL SALINE 1000ML BAG 1,000 ML IV SCH ×2 (02:15→08:45)
[2017-10-21 07:00] VITALS: BP_SYST 62
[2017-10-21] MEDS ORDERED: LEVOTHYROXINE 100 MCG TABLET PO SCH (07:00)
[2017-10-21] MEDS: NIACIN ER 250 MG TABLET.ER PO SCH (08:57)
[2017-10-21] MEDS: ASPIRIN 325 MG TABLET PO SCH (08:57)
[2017-10-21] MEDS: ISOSORBIDE MONONITRATE ER 30 MG TAB.ER.24H PO SCH (08:59)
[2017-10-21] MEDS: hydroCHLOROthiazide 12.5 MG CAPSULE PO SCH (09:00)
[2017-10-21] MEDS: LOSARTAN POTASSIUM 50 MG TABLET. PO SCH (09:00)
--- NOTE | 2017-10-21 09:55 | PDOC ---
PROGRESS NOTES Chief Complaint Chief Complaint Near syncope Hypertensive urgency ASSESSMENT AND PLAN: 1. Presyncope: no arrhythmia or evidence of TIA/stroke 2. HTN: improved. monitor 3. CAD: hx CABG. no acute issues. cont home meds 4. Hypothyroidism: subtherapeutic TSH. synthroid dose increased. rpt TSH in 1 mo 5. Dispo: home History of Present Illness History of Present Illness no dizziness, weakness, vision problems Vitals Vitals Vital Signs Date Time Temp Pulse Resp B/P (MAP) Pulse Ox O2 Delivery O2 Flow Rate FiO2 10/21/17 09:00 62 148/68 10/21/17 07:00 97.4 20 99 Room Air 97.4 Physical Exam General: Alert, Oriented X3, Cooperative, No acute distress Heart: Regular rate Lungs: Clear Abdomen: Normal bowel sounds, Soft, No tenderness Extremities: No edema Skin: No rashes Labs LABS Laboratory Tests Test 10/20/17 10:10 10/20/17 10:38 10/20/17 12:10 10/21/17 04:40 Urine Collection Type Void Urine Color Yellow Urine Clarity Clear Urine pH 7.5 Urine Specific [place] 1.015 Urine Protein Negative mg/dL (NEG-TRACE) Urine Glucose (UA) Negative mg/dL (NEG) Urine Ketones (Stick) Negative mg/dL (NEG) Urine Blood Negative (NEG) Urine Nitrite Negative (NEG) Urine Bilirubin Negative (NEG) Urine Urobilinogen Dipstick 0.2 mg/dL (0.2 mg/dL) Urine Leukocyte Esterase Negative (NEG) Urine RBC Occ /HPF (0-2) Urine WBC 0 /HPF (0-4) Urine Bacteria 0 /HPF (0-FEW) Urine Mucus Slight /LPF Influenza Type A Antigen Negative (NEGATIVE) Influenza Type B Antigen Negative (NEGATIVE) Lactic Acid Level 1.2 mmol/L (0.4-2.0) 1.0 mmol/L (0.4-2.0) XI KRISHNAMURTHY MD Oct 21, 2017 09:55
[2017-10-21 11:00] VITALS: BP 135/71
[2017-10-21] MEDS ORDERED: LOSA100T6 PO (11:49)
[2017-10-21 12:00] VITALS: BP 135/71
[2017-10-21] MEDS ORDERED: LOSARTAN POTASSIUM 50 MG TABLET. PO ONE (12:00)
--- NOTE | 2017-10-21 12:06 | CARD ---
APPROVED REPORT EXAM: Two-dimensional and M-mode echocardiogram with Doppler and color Doppler. Other Information Quality : Average INDICATION Syncope 2D DIMENSIONS Left Atrium(2D)4.2 (1.6-4.0cm)IVSd1.1 (0.7-1.1cm) Aortic Root(2D)3.0 (2.0-3.7cm)LVDd4.5 (3.9-5.9cm) LVOT Diameter2.0 (1.8-2.4cm)PWd1.1 (0.7-1.1cm) LVDs3.0 (2.5-4.0cm)FS (%) 32.9 % SV57.4 mlLVEF(%)61.6 (>50%) Aortic Valve AoV Peak Nima.127.4cm/sAoV VTI26.3cm AO Peak GR.6.5mmHgLVOT Peak Nima.105.7cm/s AO Mean GR.3mmHgAVA (VMAX)2.54cm2 POOL (VTI)2.60cm2 Mitral Valve MV E Etkbwumu64.2cm/sMV DECEL RQPH515op MV A Jzhblper64.4cm/sE/A Ratio1.3 Tricuspid Valve TR P. Wvewtldj299wa/sRAP [id number] TR Peak Gr.[id number] LEFT VENTRICLE The left ventricle is normal size. There is normal left ventricular wall thickness. Left ventricle sy stolic function is normal. The Ejection Fraction is 55-60%. There is normal LV segmental wall motion. Septal motion suggestive of prior post-operative state. Tissue Doppler imaging reveals abnormal left ventricular diastolic dysfunction. (mild) RIGHT VENTRICLE The right ventricle is normal size. The right ventricular systolic function is normal. ATRIA The left atrium is mildly dilated. The right atrium is mildly dilated. The interatrial septum is inta ct with no evidence for an atrial septal defect or patent foramen ovale as noted on 2-D or Doppler im aging. AORTIC VALVE The aortic valve is mildly calcified. Grossly tricupsid but cannot rule out bicuspid valve. Doppler a nd Color Flow revealed no significant aortic regurgitation. There is no significant aortic valvular s tenosis. MITRAL VALVE The mitral valve leaflets are calcified. There is no evidence of mitral valve prolapse. There is no m itral valve stenosis. Doppler and Color-flow revealed mild mitral regurgitation. TRICUSPID VALVE The tricuspid valve is normal in structure. Doppler and Color Flow revealed mild tricuspid regurgitat ion. There is mild pulmonary hypertension. The PA pressure was estimated at 33 mmHg. There is no tric uspid valve prolapse or vegetation. There is no tricuspid valve stenosis. PULMONIC VALVE Doppler and Color Flow revealed mild pulmonic valvular regurgitation. There is no pulmonic valvular s tenosis. GREAT VESSELS The aortic root is normal in size. The ascending aorta is normal in size. The IVC is normal in size a nd collapses >50% with inspiration. PERICARDIAL EFFUSION There is no pleural effusion. There is no evidence of significant pericardial effusion. Critical Notification Critical Value: No <Conclusion> Left ventricle systolic function is normal. The Ejection Fraction is 55-60%. There is normal LV segmental wall motion. Septal motion suggestive of prior post-operative state. Doppler and Color-flow revealed mild mitral regurgitation. Doppler and Color Flow revealed mild tricuspid regurgitation. There is mild pulmonary hypertension. T he PA pressure was estimated at 33 mmHg.
[2017-10-21] MEDS ORDERED: ATORVASTATIN CALCIUM 40 MG TABLET. PO SCH (21:00)
--- NOTE | 2017-10-23 15:21 | DS ---
DATE OF DISCHARGE: 10/21/2017 CHIEF COMPLAINT: Near syncope, hypertensive urgency. HOSPITAL COURSE: The patient is a 77-year-old gentleman admitted with dizziness, near syncope and was promptly admitted. He was worked up for arrhythmias which were not evident. No TIA or stroke was noted on exam or imaging. Hypertension was easily brought under control with medications. Etiology of hypertensive urgency is unclear. All other home medications were continued and no further issues arose. He was therefore discharged on 10/21/2017. PHYSICAL EXAMINATION: VITAL SIGNS: Blood pressure of 148/68, heart rate 62, respiratory rate 20. He is afebrile. GENERAL: Alert and oriented, no acute distress. LUNGS: Clear. HEART: Regular rate and rhythm. ABDOMEN: Positive bowel sounds, soft, nontender. EXTREMITIES: No edema. DISCHARGE DATE: 10/21/2017. DISCHARGE DIAGNOSES: Hypertensive urgency, presyncope. DISCHARGE DISPOSITION: To home. DISCHARGE CONDITION: Improved. DISCHARGE MEDICATIONS: Please refer to MAR. DISCHARGE INSTRUCTIONS: The patient will follow up with his PCP in 1 week. XI KRISHNAMURTHY MD DR: UR/nts JOB#: [id number] / [id number] ZOEY Moreira MD
== END 2017-10-21 13:36 | disposition home or self-care (01) ==
LOC: ER 07:47 → INTOOBSV 10:53 → 5 SOUTH 10:53
PROVIDERS: ADMIT Internal Medicine; ATTEND Internal Medicine
DX: R55 Syncope and collapse (principal); E03.9 Hypothyroidism, unspecified; E78.5 Hyperlipidemia, unspecified; I25.10 Atherosclerotic heart disease of native coronary artery without angina pectoris; I16.0 Hypertensive urgency; I10 Essential (primary) hypertension; Z95.1 Presence of aortocoronary bypass graft
CPT/HCPCS: 36415; 70450; 70551; 71010; 80048; 80076; 81001; 82553; 83605; 83690; 83735; 83880; 84439; 84443; 84481; 84484; 85025; 87040; 87804; 93005; 93306; 96361; 96365; 96375; 97165; 99285; G0378; G0379; G8987; G8988; G8989; J0456; J0690; J2060; J7030

== ENCOUNTER → 2019-03-26 | Outpatient (CLI) | payer BC ==
[~2019-03-26] MED LIST: ASPI325T8 PO; ATOR40TA59 PO; DONE10TA7 PO; HYDR12.58 PO; ISOS30TA4 PO; LEVO88TA4 PO; LOSA-73 PO; LOSA100T14 PO; NIAC250T19 PO
--- NOTE | 2019-03-26 13:19 | KCIC ---
Exam : Carotid Duplex with Grayscale Ultrasound and Spectral and Color Doppler Analysis 03/26/2019 1:11 PM Clinical Indications: Prior left carotid endarterectomy. Right carotid stenosis. Comparison study: CTA neck November 29, 2008 [facility] Compliance Statement - Stenosis calculations for CT, MR and conventional angiography are based upon measurement of the distal ICA diameter in accordance with the NASCET methodology. Stenosis calculations for carotid ultrasound studies are derived from validated velocity criteria which are known to correlate with the NASCET methodology. Findings: The common, internal and external carotid arteries were examined by grayscale, color and spectral Doppler ultrasound. Diffuse atherosclerotic vascular disease is seen. Mild visual narrowing is seen in the proximal right internal carotid artery on color Doppler imaging. Flow in the vertebral arteries is antegrade. The following are the velocities and ratios in the carotid arteries on both sides: RIGHT ICA PV: 217cm/sec RIGHT CCA PV: 150cm/sec RIGHT ICA ED: 42cm/sec RIGHT IC/CCPV: 1.4 RIGHT VERTEBRAL: antegrade flow LEFT ICA PV: 166cm/sec LEFT CCA PV: 126cm/sec LEFT ICA ED: 19.8cm/sec LEFT IC/CCPV: 1.4 LEFT VERTEBRAL: antegrade flow <50% ICA Stenosis: PSV < 125cm/s (EDV < 40cm/s; SVR < 2.0) 50-69% ICA Stenosis: PSV < 125-229cm/s (EDV 40-99cm/s; SVR 2.0-3.9) >70% ICA Stenosis: PSV > 230cm/s (EDV >100cm/s; SVR >4.0) Impression: 1. Elevated velocities within the right internal carotid artery, with associated visual narrowing, suggesting 50-69 percent stenosis 2. Elevated velocities within the proximal left internal carotid artery without corresponding visual narrowing. Diffuse 69 percent stenosis cannot be excluded. CT angiography could be performed for further evaluation as clinically indicated. Electronically signed by: Doyle Holbrook MD (03/26/2019 1:16 PM) [id number]
== END | disposition home or self-care (01) ==
LOC: KCIC US 11:13
PROVIDERS: ATTEND Family Medicine
DX: I65.21 Occlusion and stenosis of right carotid artery (principal)
CPT/HCPCS: 93880